=== PATIENT | male | born 1980 | race African-American/Black ===

== ENCOUNTER 2020-01-08 17:43 | Outpatient (REF) | payer BC, SELFPAY ==
[2020-01-08 20:05] LABS: ALT 49 U/L (16-63); AST 26 U/L (15-37); Albumin 4.2 g/dL (3.4-5.0); Alkaline Phosphatase 57 U/L (46-116); Anion Gap 7.5 mmol/L (3-11); BUN 11 mg/dL (7-18); Bilirubin, Total 0.3 mg/dL (0.2-1.0); CO2 28.5 mmol/L (21.0-32.0); CREATININE 0.88 mg/dL (0.70-1.30); Calcium 9.2 mg/dL (8.5-10.1); Calculated LDL 104 mg/dL (<100); Chloride 108 mmol/L (98-107); Cholesterol 186 mg/dL (<200); Glucose 64 mg/dL (74-106); HDL Cholesterol 47 mg/dL (40-60); Potassium 3.9 mmol/L (3.5-5.1); Sodium 144 mmol/L (136-145); Total Protein 7.4 g/dL (6.4-8.2); Triglyceride 177 mg/dL (<150)
[2020-01-08 20:23] LABS: Hemoglobin A1C 5.5 % (<5.7)
[2020-01-10 09:53] LABS: Hepatitis B Surface Ag Negative (Negative)
[2020-01-10 10:53] LABS: Hepatitis C Ab w Rflx HCV PCR Negative (Negative)
== END 2020-01-08 18:03 ==
LOC: NCHCN 17:43
PROVIDERS: PCP Family Medicine; Visit Provider Family Medicine
DX: Z00.00 Encounter for general adult medical examination without abnormal findings (principal); R74.01 Elevation of levels of liver transaminase levels; Z11.59 Encounter for screening for other viral diseases; Z13.220 Encounter for screening for lipoid disorders; Z13.1 Encounter for screening for diabetes mellitus
CPT/HCPCS: 80053; 80061; 86803; 87340; 83036

== ENCOUNTER 2020-02-18 14:09 | Outpatient (REF) | payer BC, SELFPAY ==
[2020-02-22 07:28] LABS: SARS-CoV-2 RNA Undetected (Undetected); SARS-CoV-2 Specimen Source Nasal
== END 2020-02-18 14:29 ==
LOC: NCHCN 14:09
PROVIDERS: PCP Family Medicine; Visit Provider Nurse Practitioner Family
DX: Z20.828 Contact with and (suspected) exposure to other viral communicable diseases (principal)
CPT/HCPCS: U0003

== ENCOUNTER 2023-03-11 12:51 | Emergency (ER) | payer BC, SELFPAY ==
[2023-03-11 12:56] VITALS: BP 163/110; PULSE 101; RESP 18; O2SAT 96
--- NOTE | 2023-03-11 13:26 | W.ED.GENAD ---
Discharge Plan Disposition Patient Disposition: Home Condition: Good Discharge Details Clinical Impression: Chest wall contusion Primary Care Provider: Jean Paul Bass ED Provider: Autumn Collazo Home Meds and New Rx's Prescriptions: No Action No Known Home Meds Discharge Instructions Instructions: Contusion in Adults (ED), Rib Contusion (ED) Additional Instructions: Your imaging is reassuring here today. Please encourage hydration. Please continue with Tylenol and ibuprofen as needed for discomfort. You may use topical options such as Lidoderm patch to help with pain. Please encourage deep inspiration and use the incentive spirometer as instructed by nursing staff. If you develop any cough, fevers, increased pain or other new/worsening symptoms to seek care urgently once again. Otherwise, please follow-up with your primary care in 1 to 2 weeks for reevaluation. While I do encourage you to be walking frequently to help open your lungs, please try to reduce heavy lifting and overly exerting yourself as this may increase her pain. Stand Alone Forms: Work Release Referrals: Jean Paul Bass [Primary Care Provider] - Discharge Data Discharge Date/Time-TO BE ENTERED AT DEPARTURE: 03/11/23 15:22 Medical Decision Making Patient is a pleasant 42-year-old male, otherwise healthy, presenting today with chief complaint of anterior chest pain after falling yesterday. He reports that last night he slipped outside of his neighbor's house falling forward while going up a slight incline. He states that when he landed he did so on some broken up balls of ice. Pain immediately along anterior chest where he struck. He denies any shortness of breath. He did not strike his head. No loss of consciousness. Denies any pain in his neck or in his back. Denies any abdominal pain. States that he did also extend his arms but denies any persistent pain in his upper extremities. Pain worse with coughing. On exam, patient appears nontoxic. Resting comfortably no acute distress. Lungs are clear in all trotter. Does have some chest discomfort anteriorly with palpation but no focal area of pain, ecchymosis, palpable deformity, crepitus. No abdominal discomfort. No pain of the C or T-spine with palpation, no step-off. No evidence of head trauma. Will obtain chest x-ray to evaluate for potential pneumothorax or rib fracture. This patient's not having focal pain and it does seem to be fairly distributed against the right and left side, will hold off on focal rib views at this time. He has not had any analgesics as of yet, will give ibuprofen to help with pain. X-ray reviewed by radiologist: FINDINGS: Exam limited by poor pulmonary inflation particularly on the PA view. HEART: Normal size. Aorta: Not dilated. PULMONARY VASCULATURE: Normal. LUNGS: Clear. Density seen adjacent to left heart border corresponds to vessels, unchanged from prior. PLEURAL SPACE: No pleural effusion or pneumothorax. BONE:Unremarkable for age. No rib fractures identified. Soft tissues: Unremarkable. IMPRESSION: No acute abnormality Discussed these findings with the patient. I advised that even though imaging is reassuring may have more subtle fracture or contusions. Will give incentive spirometer and encourage deep breathing. Encourage hydration. We discussed [id number] medications that may help with acute discomfort. Discussed splinting when coughing. 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 Return precautions discussed. Advise follow-up with primary care. All of his questions and concerns were addressed and he is in agreement with this plan. HPI General Date/Time Provider Initiated Documentation: 03/11/23 13:26. Limitations to Documentation: no limitations. Information obtained by: patient and RN notes reviewed. History of Present Illness 42 year old M presents to the emergency department with the chief complaint of chest pain after fall on ice, described as moderate, Quality is described as aching, and is localized to the chest. Patient reports no radiation. Patient started experiencing this day(s) (last night) and it has been constant. Immobilization improves symptom(s), Movement worsens symptoms . Patient notes no other symptoms.. Patient did receive the following treatments prior to arrival, none Related Data Home Medications Medication Instructions Recorded Confirmed Unknown [No Known Home Meds] 03/11/23 03/11/23 Allergies Allergy/AdvReac Type Severity Reaction Status Date / Time banana [Banana] Allergy Anaphylaxsi Unverified 03/11/23 12:58 s General Stated Complaint: Chest/Rib JANEEN: 3 Review of Systems Constitutional Constitutional: Reports as per HPI, Denies chills, Denies fever(s), Denies headache(s) and Denies poor appetite ENT Ears, Nose, Mouth, and Throat: Denies headache(s) Cardiovascular Cardiovascular: Reports as per HPI, Denies dyspnea and Denies dyspnea on exertion Respiratory Respiratory: Reports as per HPI, Denies chest congestion, Denies cough, Denies dyspnea and Denies dyspnea on exertion Gastrointestinal Gastrointestinal: Reports as per HPI, Denies abdominal pain, Denies nausea and Denies vomiting Musculoskeletal Musculoskeletal: Reports as per HPI and Denies back pain Integumentary/Breasts Skin/Breast: Reports as per HPI and Denies rash Neurologic Neurologic: Reports as per HPI and Denies headache(s) PFSH All Active Problems (Updated 03/11/23 @ 15:15 by FARHAN Moyer) Chest wall contusion (Acute) Social History Smoking/Tobacco Use Status: Former Tobacco Use Smoking risk assessment performed?: Yes Drug use: Daily Substance use type: marijuana Housing: house Do you feel safe at home: Yes Do you feel safe in your relationship?: Yes Exam Const General: cooperative, healthy appearing, comfortable, no acute distress and well developed Nutritional Appearance: average body habitus and well nourished Orientation: alert, awake and oriented x3 HENMT Head: normal to inspection Ears: hearing grossly normal bilaterally Mouth: moist mucous membranes Neck Neck: normal visual inspection and full ROM Chest Chest: normal inspection of the chest, normal palpation of entire chest wall, no crepitus and tenderness (lower anterior chest wall, L>R side) Resp Effort & Inspection: normal respiratory effort, able to speak in complete sentences and no respiratory distress Auscultation: clear to auscultation bilaterally, no rales, no rhonchi and no wheezes Cardio Rate: regular rate Rhythm: regular rhythm Heart Sounds: S1 normal and S2 normal GI Inspection: normal to inspection, no edema and non-distended Palpation: soft, no hepatosplenomegaly, not firm, no guarding, not rigid and nontender Back/Spine/Pelvis Cervical Spine: normal cervical lordosis, cervical ROM normal, No cervical spinal tenderness and No step off deformity Thoracic/Lumbar Spine: thoracic and lumbar spine normal to inspection Skin General skin exam: no rashes or lesions noted Trauma: no lacerations or abrasions Neuro General: patient alert, patient awake and patient oriented x3 Cognition: normal cognition Speech: speech normal Gait: normal gait Course Vital Signs Vital signs: Vital Signs Pulse 101 H 03/11/23 12:56 Respiratory Rate 18 03/11/23 12:56 Blood Pressure 163/110 H 03/11/23 12:56 Pulse Oximetry 96 03/11/23 12:56 Pulse 101 H 03/11/23 12:56 Respiratory Rate 18 03/11/23 12:56 Respiratory Effort Normal, Non-Labored 03/11/23 13:07 Respiratory Depth Normal 03/11/23 13:07 Respiratory Pattern Normal 03/11/23 13:07 Blood Pressure 163/110 H 03/11/23 12:56 Blood Pressure Position Sitting 03/11/23 12:56 Pulse Oximetry 96 03/11/23 12:56 Oxygen Delivery Method Room Air 03/11/23 12:56 Oxygen Flow Rate 0 03/11/23 12:56 Pain Level 7 03/11/23 13:07 PAWSS Have you Been Recently Intoxicated or Drunk Within the Last 30 days?: No Have you Ever Experienced Previous Episodes of Alcohol Withdrawal?: No Have you ever Experienced Withdrawal Seizures?: No Have you ever Experienced Delirium Tremens(DT)s?: No Have you ever undergone Alcohol Rehabilitation Treatment (i.e, inpt ot outpatient treatment programs)?: No Have you ever Experienced Blackouts?: No Have you ever Combined Alcohol with other Downers within the last 90 days?: No Have you ever Combined Alcohol with any other Substance of Abuse during the last 90 days?: No Positive Blood Alcohol level on Presentation? [PCS.BAL]: No Evidence of Increased Autonomic Activity (i.e. HR>120, tremor, sweating, agitation, nausea)?: No Result: 0
--- NOTE | 2023-03-11 13:30 | DI.RAD_ITS ---
Exam(s) XR CHEST 2V PA LATERAL EXAM: XR CHEST 2V PA LATERAL CLINICAL HISTORY: fall on ice, pain anteriorly TECHNIQUE: 2D digital imaging was performed. COMPARISON: CR RIGHT RIBS TO INCLUDE CXR from 05/28/2015 FINDINGS: Exam limited by poor pulmonary inflation particularly on the PA view. HEART: Normal size. Aorta: Not dilated. PULMONARY VASCULATURE: Normal. LUNGS: Clear. Density seen adjacent to left heart border corresponds to vessels, unchanged from pr ior. PLEURAL SPACE: No pleural effusion or pneumothorax. BONE:Unremarkable for age. No rib fractures identified. Soft tissues: Unremarkable. IMPRESSION: No acute abnormality. DATA REPOSITORY: RADIATION DOSE DELIVERED:
[2023-03-11] MEDS: Ibuprofen 600 MG TAB PO (13:41)
--- NOTE | 2023-03-11 14:13 | DI.VRAD_ITS ---
PROCEDURE INFORMATION: Exam: XR Chest Exam date and time: 03/11/2023 1:53 PM Age: 42 years old Clinical indication: Injury or trauma; Other: Fall on ice, pain anteriorly TECHNIQUE: Imaging protocol: Radiologic exam of the chest. Views: 2 views. COMPARISON: No relevant prior studies available. FINDINGS: Limitations: The area of clinical concern was not marked. Lungs: Low lung volumes. Patchy density in the right perihilar region. No focal consolidation. Pleural spaces: Unremarkable. No pleural effusion. No pneumothorax. Heart/Mediastinum: Unremarkable. No cardiomegaly. Bones/joints: On the limited two view series no displaced rib fracture identified. IMPRESSION: 1. Hypoventilation. 2. Patchy density in the right perihilar region. 3. The area of clinical concern was not marked. If clinically concerned about a possible rib fracture recommend rib films with markers in the area of clinical interest. Dictated and Authenticated by: Alannah De La O MD. Ordering:ANDI Leyva MD
== END 2023-03-11 15:22 | disposition home or self-care (01) ==
PROVIDERS: Emergency Provider Physician Assistant; PCP Family Medicine
DX: R07.89 Other chest pain (principal); S20.219A Contusion of unspecified front wall of thorax, initial encounter; W00.9XXA Unspecified fall due to ice and snow, initial encounter
CPT/HCPCS: 99283; 71046

== ENCOUNTER 2024-03-11 16:17 | Emergency (ER) | payer BC, SELFPAY ==
[2024-03-11 16:20] VITALS: BP 172/101; PULSE 90; RESP 15; TEMP 36.8; O2SAT 96
--- NOTE | 2024-03-11 16:30 | DI.RAD_ITS ---
Exam(s) XR FEMUR RT EXAM: XR FEMUR RT CLINICAL HISTORY: lateral and anterior pain. TECHNIQUE: 2D digital imaging was performed. AP and lateral views. COMPARISON: No exams were available for comparison FINDINGS: BONES: No acute fracture is present. No bony destructive lesion is seen. JOINTS: Visualized portion of knee and hip joints are unremarkable. SOFT TISSUE: Normal. IMPRESSION: Unremarkable radiographs of the right femur. DATA REPOSITORY: RADIATION DOSE DELIVERED:
[2024-03-11 16:36] VITALS: BP 149/98; RESP 16; O2SAT 99
--- NOTE | 2024-03-11 16:37 | ED.GENADUL_ITS ---
Discharge Plan Disposition Patient Disposition: Home Condition: Stable Discharge Details Clinical Impression: Right thigh pain Primary Care Provider: Issac Montana ED Provider: Adolfo Cisneros Home Meds and New Rx's Prescriptions: Continued olmesartan 5 mg tablet 10 mg PO DAILY Patient Comments: TAKE TWO TABLETS BY MOUTH EVERY DAY Discharge Instructions Additional Instructions: Your x-ray did not show any concerning findings. You are likely having muscle spasms. If you are still having these in a week follow-up with your primary care provi richard You can take 1000 mg of acetaminophen and 600 mg of ibuprofen every 6 hours as needed If you feel more ill, have severe worsening pain or severe leg swelling return to the emergency department for reevaluation HPI General Mode of arrival: ambulatory . Date/Time Provider Initiated Documentation: 03/11/24 16:22 . Limitations to Documentation: no limitations . Information obtained by: patient . History of Present Illness 43 year old M presents to the emergency department with the chief complaint of right thigh pain, described as moderate, Quality is described as aching, Patient started experiencing this day(s) (2) and it has been constant. No relieving factors improve symptom(s), No exacerbating factors reported . Patient notes no other symptoms.. Patient did receive the following treatments prior to arrival, other (tylenol) Related Data Home Medications ?Medication ?Instructions ?Recorded ?Confirmed olmesartan 5 mg tablet 10 mg PO DAILY 03/11/24 03/11/24 Allergies Allergy/AdvReac Type Severity Reaction Status Date / Time banana (Banana) Allergy Anaphylaxsi Unverified 03/11/24 16:22 s General Stated Complaint: Orthopedic JANEEN: 4 Review of Systems All systems reviewed & are unremarkable except as noted in HPI and below Constitutional Constitutional: Denies chills, Denies fever(s) and Denies weakness Cardiovascular Cardiovascular: Denies chest pain and Denies dyspnea Respiratory Respiratory: Denies cough and Denies dyspnea Gastrointestinal Gastrointestinal: Denies abdominal pain and Denies vomiting Musculoskeletal Musculoskeletal: Reports muscle cramps Neurologic Neurologic: Denies weakness Exam Const General: no acute distress Orientation: alert HENMT Head: normal to inspection Ears: external ears normal General nose exam: external nose normal Mouth: moist mucous membranes Eyes General: appearance normal, both eyes and all related structures Neck Neck: normal visual inspection Resp Effort & Inspection: normal respiratory effort and able to speak in complete sentences Cardio Rate: regular rate Skin General skin exam: no rashes or lesions noted Neuro General: patient alert and patient oriented x3 Extrem General: normal to inspection, full ROM and capillary refill normal Psych Mental Status: mental status grossly normal Course Vital Signs Vital signs: Vital Signs Temperature 36.8 C 03/11/24 16:20 Pulse 90 03/11/24 16:20 Respiratory Rate 15 03/11/24 16:20 Blood Pressure 172/101 H 03/11/24 16:20 Pulse Oximetry 96 03/11/24 16:20 Temperature 36.8 C 03/11/24 16:20 Pulse 90 03/11/24 16:20 Respiratory Rate 15 03/11/24 16:20 Respiratory Effort Normal 03/11/24 16:23 Blood Pressure 172/101 H 03/11/24 16:20 Blood Pressure Position Sitting 03/11/24 16:20 Pulse Oximetry 96 03/11/24 16:20 Oxygen Delivery Method Room Air 03/11/24 16:20 Oxygen Flow Rate 0 03/11/24 16:20 Pain Level 10 03/11/24 16:32 Medical Decision Making 43-year-old male with a history of hypertension comes in with 2 days of nontraumatic right anterior lateral thigh pain. He describes it as a throbbing and almost like a muscle spasm. Denies any falls, fevers, chills. He is well- appearing on exam. He is full range of motion of the hip and knee. He has tenderness to the superior anterior right thigh and right lateral thigh. There is no erythema or rashes. There are no discoloration of the entire leg. There is no swelling of the leg. There is no calf tenderness. He has intact distal distal sensation and pulses. He denies any back pain. No findings on exam to suggest entity such as acute arterial occlusion, infectious etiology such as abscess, or DVT. I suspect muscle spasm, will obtain x-rays to exclude pathological fractures and reassess. X-ray unremarkable, patient feels significantly better after 1 dose of Toradol. Still is reassuring exam. Full range of motion and no concerning findings on exam. Suspect musculoskeletal pain and likely muscle spasm. He is stable for discharge he will follow-up with his PCP, return precautions given Differential Diagnosis Differential Diagnosis: Muscle spasm, strain, sciatica Quality:SDOH Health Related Social Needs: No Data to Display PFSH All Active Problems (Updated 03/11/24 @ 18:10 by Adolfo Cisneros MD) Right thigh pain (Acute) Social History Smoking/Tobacco Use Status: Former Tobacco Use Smoking risk assessment performed?: Yes Drug use: Daily Substance use type: marijuana Housing: house Do you feel safe at home: Yes Do you feel safe in your relationship?: Yes PAWSS Have you Been Recently Intoxicated or Drunk Within the Last 30 days?: No Have you Ever Experienced Previous Episodes of Alcohol Withdrawal?: No Have you ever Experienced Withdrawal Seizures?: No Have you ever Experienced Delirium Tremens(DT)s?: No Have you ever undergone Alcohol Rehabilitation Treatment (i.e, inpt ot outpatient treatment programs)?: No Have you ever Experienced Blackouts?: No Have you ever Combined Alcohol with other Downers within the last 90 days?: No Have you ever Combined Alcohol with any other Substance of Abuse during the last 90 days?: No Positive Blood Alcohol level on Presentation? [PCS.BAL]: No Evidence of Increased Autonomic Activity (i.e. HR>120, tremor, sweating, agitation, nausea)?: No Result: 0
[2024-03-11] MEDS: Ketorolac 15 MG/ML VIAL IM (16:43)
[2024-03-11 18:17] VITALS: BP 156/101; PULSE 90; RESP 14; O2SAT 100
== END 2024-03-11 18:19 | disposition home or self-care (01) ==
PROVIDERS: Emergency Provider Emergency Medicine; PCP Student in an Organized Health Care Education/Training Program
DX: M25.551 Pain in right hip (principal); M79.651 Pain in right thigh
CPT/HCPCS: 73552; 99283; J1885

== ENCOUNTER 2024-03-15 11:01 | Outpatient (CLI) | payer BC, SELFPAY ==
--- OUTSIDE RECORDS SUMMARY | 2024-03-15 11:22 | XMS_ITS | Encounter Summary ---
Author Organization [facility] Address [address] [place] [address] Care Team Providers Care Overedger Name Role Phone Unavailable Primary Care Provider Unavailabl e Encounter Details Date Type Department Care Team (Late st Contact Info) Description 01/09/2020 Lab Requisition [facility] Pathology & Laboratory Medicine - [address] [address] Outr Resulting Lab, Provider Social History Tobacco Use Types Packs/Day Years Used Date Smoking Tobacco: Never Assessed Sex and Gender Information Value Date Recorded Sex Assigned at Not on file Legal Sex Male 9:57 EDT Gender Identity Not on file Sexual Orientation Not on file documented as of this encounter Plan of Treatment Not on file documented as of this encounter Procedures Procedure Name Priority Date/Time Associated Diagnosis Comments HEPATITIS C AB W REFLEX TO HCV RNA BY PCR Routine 01/08/2020 15:20 EDT HEPATITIS B SURFACE ANTIGEN Routine 01/08/2020 15:20 EDT documented in this encounter Results * HEPATITIS B SURFACE ANTIGEN (01/08/2020 15:20 EDT) Hep B Surface Ag Negative Negative 01/10/2020 9:48 EDT [facility] Blood VENOUS BLOOD / Unknown 01/08/2020 15:20 EDT 01/09/2020 16:22 EDT us Provider Outr Resulting Lab CHEMISTRY & BLOOD GA S ORDERABLES Final Result [facility] [address] [place] [address] * HEPATITIS C AB W REFLEX TO HCV RNA BY PCR (01/08/2020 15:20 EDT) Hep C Antibody Negative Negative 01/10/2020 10:48 EDT [facility] Blood VENOUS BLOOD / Unknown 01/08/2020 15:20 EDT 01/09/2020 16:22 EDT us Provider Outr Resulting Lab CHEMISTRY & BLOOD GA S ORDERABLES Final Result [facility] [address] [place] [address] documented in this encounter Visit Diagnoses Not on filedocumented in this encounter
--- OUTSIDE RECORDS SUMMARY | 2024-03-15 11:22 | XMS_ITS | Referral Summary ---
Author Organization [facility] Address [address] [place] [id number] Care Team Providers Care Coagulating Operator Name Role Phone Unavailable Primary Care Provider Unavailabl e Social History Tobacco Use Types Packs/Day Years Used Date Smoking Tobacco: Never Assessed Interpersonal Safety Answer Date Record ed Physically Hurt Never 02/25/2020 Verbally Threaten Not on file 02/25/2020 Sex and Gender Information Value Date Recorded Sex Assigned at Not on file Legal Sex Male 9:57 EDT Gender Identity Not on file Sexual Orientation Not on file Plan of Treatment Not on file Procedures Procedure Name Priority Date/Time Associated Diagnosis Comments HEPATITIS C AB W REFLEX TO HCV RNA BY PCR Routine 01/08/2020 15:20 EDT from Last 3 Months or Most Recently Relevant to Health Maintenance Results * HEPATITIS C AB W REFLEX TO HCV RNA BY PCR (01/08/2020 15:20 EDT) Hep C Antibody Negative Negative 01/10/2020 10:48 EDT [facility] Blood VENOUS BLOOD / Unknown 01/08/2020 15:20 EDT 01/09/2020 16:22 EDT us Provider Outr Resulting Lab CHEMISTRY & BLOOD GA S ORDERABLES Final Result [facility] [address] [place] [address] from Last 3 Months or Most Recently Relevant to Health Maintenance
--- OUTSIDE RECORDS SUMMARY | 2024-03-15 11:22 | XMS_ITS | Clinical Summary ---
Author Organization [facility] Address [address] [place] [id number] Care Team Providers Care Bellstand Attendant Name Role Phone Unavailable Primary Care Provider [...] Orientation Not on file Plan of Treatment Health Maintenance Due Date Last Done Comments Hepatitis B Vaccine (1 of 3 - 19+ 3-dose series) 06/23 COVID-19 Vaccine ( season) 2023 Hepatitis C Screen Completed 01/08/2020 Procedures Procedure Name Priority Date/Time Associated Diagnosis Comments HEPATITIS C AB W REFLEX TO HCV RNA BY PCR Routine 01/08/2020 15:20 EDT from Last 3 Months or Most Recently Relevant to Health Maintenance Results * HEPATITIS C AB W REFLEX TO HCV RNA BY PCR (01/08/2020 15:20 EDT) Hep C Antibody Negative Negative 01/10/2020 10:48 EDT [facility] Blood VENOUS BLOOD / Unknown 01/08/2020 15:20 EDT 01/09/2020 16:22 EDT us Provider Outr Resulting Lab CHEMISTRY & BLOOD GA S ORDERABLES Final Result [facility] [address] [place] [address] from Last 3 Months or Most Recently Relevant to Health Maintenance
[2024-03-15 15:02] LABS: Hemoglobin A1C 5.9 % (<5.7)
[2024-03-15 15:31] LABS: ALT 46 U/L (16-63); AST 25 U/L (15-37); Albumin 3.6 g/dL (3.4-5.0); Alkaline Phosphatase 77 U/L (46-116); Anion Gap 6.7 mmol/L (3-11); BUN 17 mg/dL (7-18); Bilirubin, Total 0.22 mg/dL (0.2-1.0); CO2 30.3 mmol/L (21.0-32.0); CREATININE 0.9 mg/dL (0.70-1.30); Calcium 9.2 mg/dL (8.5-10.1); Calculated LDL 109 mg/dL (<100); Chloride 107 mmol/L (98-107); Cholesterol 204 mg/dL (<200); Estimated GFR 108.68 (mL/min/1.73m2); Glucose 87 mg/dL (74-106); HDL Cholesterol 53 mg/dL (40-60); Sodium 144 mmol/L (136-145); TSH (W/Ref FT4) 1.04 uIU/mL (0.36-3.74); Triglyceride 213 mg/dL (<150)
== END 2024-03-15 11:02 | disposition home or self-care (01) ==
LOC: LBO 11:03
PROVIDERS: PCP Student in an Organized Health Care Education/Training Program; Visit Provider Student in an Organized Health Care Education/Training Program
DX: I10 Essential (primary) hypertension (principal); E66.01 Morbid (severe) obesity due to excess calories; Z13.1 Encounter for screening for diabetes mellitus; Z13.220 Encounter for screening for lipoid disorders
CPT/HCPCS: 36415; 80053; 80061; 83036; 84443

== ENCOUNTER 2024-11-13 14:47 | Outpatient (REF) | payer SELFPAY ==
[2024-11-14 17:03] LABS: COMMENT (LAB VIEW ONLY) 133.26 mg/dL; Microalb ug/mg Crea 8.4 ug/mg Cr
== END 2024-11-13 14:48 | disposition home or self-care (01) ==
LOC: NCHCN 14:47
PROVIDERS: PCP Student in an Organized Health Care Education/Training Program; Visit Provider Student in an Organized Health Care Education/Training Program
DX: I10 Essential (primary) hypertension (principal)
CPT/HCPCS: 82043; 82570